=== PATIENT | male | born 1990 | race Caucasian/White ===

== ENCOUNTER 2016-05-01 09:11 | Emergency (ER) | payer BC ==
[~2016-05-01] VITALS: Ht 175.3 cm; Wt 92.0 kg
[~2016-05-01 09:11] MED LIST: HYDR50CA2 PO
[2016-05-01 09:13] VITALS: BP 149/92; PULSE 72; TEMP 37; O2SAT 95; Ht 175.3 cm; Wt 92.0 kg
[2016-05-01] MEDS ORDERED: XYLOCAINE 1%/SOD BICARB 20 ML VIAL INFIL ONE (09:30)
[2016-05-01] MEDS ORDERED: SULF800T23 PO (10:32)
[2016-05-01] MEDS ORDERED: HYDR-5688 PO (10:32)
[2016-05-01] MEDS ORDERED: CEPH500C2 PO (10:32)
--- NOTE | 2016-05-01 19:31 | EMERGENCY ROOM VISIT NOTE ---
ED Visit Note First contact with patient: 09:20 CHIEF COMPLAINT: Tailbone pain and swelling. HISTORY OF PRESENT ILLNESS: Mr. Narayanan is an 25-year-old white male who ambulates into the ED accompanied by mother sawyer costelloaining of coccyx pain and swelling. Patient reports he noticed a hard tender area in superior aspect of the left gluteal fold to 2 days ago. Since that time he has noted the area slowly getting larger, more painful, tender with increasing redness. He does not know of any skin injury preceding the redness and has not observed any drainage from the red area. Currently he describes his discomfort in this area as a pressure sensation. He rates his discomfort 6/10. The pain worsens with sitting on this area as well as palpation. He has minimal relief when he is not sitting on the area. His pain is nonradiating. He has not taken any medications for pain prior to arrival at the hospital. He denies any associated symptoms including fevers, chills, sweats, other skin eruptions, skin color changes, abdominal pain, nausea , vomiting, diarrhea, constipation, rectal bleeding, black/tarry stools, urinary symptoms, hematuria, lower extremity weakness/numbness/tingling, back pain. REVIEW OF SYSTEMS: As noted above in History of Present Illness; a body systems were reviewed with the patient and found to be negative unless noted above otherwise. PAST MEDICAL HISTORY: Asthma, unspecified knee and shoulder surgeries. ALLERGIES TO MEDICATION: Patient denies. CURRENT MEDICATION: Patient denies. SOCIAL HISTORY: Patient is currently University student; he feels safe in his home environment; he denies tobacco use and admits to social alcohol use. PHYSICAL EXAM: Vital Signs: Date Time Temp Pulse Resp B/P Pulse Ox O2 Delivery O2 Flow Rate FiO2 05/01/16 09:13 37.0 72 18 149/92 95 Room Air General: 25 year-old white male in mild acute distress, nontoxic appearing, afebrile and hemodynamically stable. Neurological: Awake, alert and oriented to person, place and time. Answering questions appropriately and following commands. Skin: Warm, dry and pink. Left Gluteal Fold: Over the superior aspect of the fold there is an indurated area in the glenoid by 3 cm area that measures 3 x 5 cm. The area is fluctuant without pointing, but no drainage. There is a zone of inflammation around it but no lymphangitis. Thorax: Lungs sounds are clear to auscultation and equal bilaterally with symmetrical chest wall movement. No wheezing, rales or rhonchi. No increased respiratory effort. Abdomen: Flat, soft and nontender. Positive bowel sounds in all quadrants. No guarding or rigidity. ED COURSE: Patient is assessed as noted above. Incision and Drainage: Location: Left proximal gluteal fold Verbal consent was obtained after the risks and benefits were explained. The skin was prepped with betadine and a sterile field set. The area surrounding the abscess was anesthetized with 6.8 ml of 1% buffered lidocaine. The abscess cavity was incised with a scalpel. Approximately 6 mL of purulent material was drained from the abscess and more was expressed. Aerobic cultures were obtained and are currently pending. The abscess cavity was sharply dissected with iris scissors to break up loculations and a small amount of additional purulent drainage was expressed. Copious irrigation was performed using sterile saline. The abscess cavity was cleaned out with a cotton tip applicator dipped in Betadine. Hemostasis was achieved. Iodoform gauze packing was inserted into the abscess. A sterile dressing was applied. No complications and the patient tolerated the procedure well. Patient was educated about his condition and instructed on his treatment plan; they verbalized understanding and agreement with this plan. CLINICAL IMPRESSION: Pilonidal abscess. DISPOSITION: Patient discharged to home in stable condition accompanied by his mother; prior to departure he was reassessed and subjectively reported he was feeling better and rated his discomfort 2/10. PLAN: Patient was placed on a sliding pain scale of ibuprofen, acetaminophen and Supply ; appropriate narcotic precautions were discussed with the patient. Patient was placed on a ten-day course of Bactrim and Keflex and educated on their use. Patient was encouraged to follow-up with his PCP or return to the ED in 36-48 hours for recheck and possible packing removal Patient was educated on worsening signs of infection and encouraged return to the ED sooner for any signs of worsening infection or uncontrolled pain.
--- NOTE | 2016-05-04 16:13 | Pharmacy Progress Note ---
ED Pharmacist Culture FollowUp Date of Service: May 04, 2016. Patient was sent home with a prescription for Bactrim, which is likely to cover the coag negative Staph growing from the patient's abscess culture. Patient was sent home with a prescription for Keflex, which may cover the Peptostreptococcus growing from the patient's abscess culture. Sarahi Darnell PA-C saw patient yesterday and noted marked improvement in symptoms with minimal erythema. Spoke with Floyd Alonzo PA-C, who agrees that no further intervention is required at this time.
== END 2016-05-01 10:45 | disposition home or self-care (01) ==
LOC: C.EDB 09:12
DX: L05.01 Pilonidal cyst with abscess (principal); J45.909 Unspecified asthma, uncomplicated

== ENCOUNTER 2016-05-03 09:38 | Emergency (ER) | payer BC ==
[~2016-05-03] VITALS: Ht 175.3 cm; Wt 91.9 kg
[~2016-05-03 09:38] MED LIST changes: +CEPH500C2 PO; +HYDR-5688 PO; -HYDR50CA2 PO; +SULF800T23 PO
[2016-05-03 09:46] VITALS: BP 127/79; PULSE 61; TEMP 37; O2SAT 97; Ht 175.3 cm; Wt 91.9 kg
--- NOTE | 2016-05-03 10:05 | EMERGENCY ROOM VISIT NOTE ---
ED Visit Note First contact with patient: 09:57 CHIEF COMPLAINT: Packing removal HISTORY OF PRESENT ILLNESS: This 25-year-old male patient presents to the emergency department to have packing removed from an incised and drained pilonidal abscess REVIEW OF SYSTEMS: A 6 system review of systems was completed with positives and pertinent negatives listed in the HPI. ALLERGIES: No known drug allergies MEDICATIONS: Unchanged from previous PMH: Unchanged from previous SOCIAL HISTORY: The patient does not smoke. He lives locally PHYSICAL EXAM: VITALS: Vitals are noted on the nurse's note and reviewed by myself. Vital signs stable. GENERAL: This is a 25-year-old male, in no acute distress, nondiaphoretic, well- developed well-nourished. SKIN: There is an excised, drained and packed wound in the gluteal cleft. There is only minimal erythema. EMERGENCY DEPARTMENT COURSE: The patient was seen and examined. Overall, the patient's symptoms have markedly improved. The patient is currently on Bactrim and Keflex. The patient's culture grew out mixed bacteria. The packing was easily removed. The patient should continue the antibiotics until gone. he should return with worsening symptoms. Current/Historical Medications Scheduled Cephalexin Monohydrate (Keflex), 500 MG PO QID Sulfa/Trimethoprim (Bactrim Ds 800MG/160MG), 1 TAB PO BID Scheduled PRN Hydrocodone/Acetaminophen 5MG/325MG ([place] 5MG/325MG), 1-2 TABLET PO Q6H PRN for Pain Allergies Coded Allergies: No Known Allergies (Unverified , 05/03/16) Vital Signs Date Time Temp Pulse Resp B/P Pulse Ox O2 Delivery O2 Flow Rate FiO2 05/03/16 09:46 37.0 61 16 127/79 97 Room Air Departure Information Impression Primary Impression: Abscess packing removal Dispostion Home / Self-Care Condition GOOD Referrals No Doctor, Assigned (PCP) Patient Instructions [facility] Additional Instructions Continue the antibiotics as prescribed, until finished Follow-up with Gen. surgery for further evaluation, management and excision Return with any worsening symptoms
== END 2016-05-03 10:15 | disposition home or self-care (01) ==
LOC: C.EDB 09:40 → C.EDC 10:15
DX: L05.01 Pilonidal cyst with abscess (principal)

== ENCOUNTER 2016-08-28 17:53 | Emergency (ER) | payer BC ==
[~2016-08-28] VITALS: Ht 172.7 cm; Wt 92.3 kg
[~2016-08-28 17:53] MED LIST changes: -CEPH500C2 PO; -SULF800T23 PO
[2016-08-28 18:02] VITALS: BP 145/61; PULSE 80; TEMP 37.1; O2SAT 100; Ht 172.7 cm; Wt 92.3 kg
[2016-08-28] MEDS ORDERED: LIDO/EPINEPHRINE/SOD BICARB 20 ML VIAL INFIL ONE (18:15)
[2016-08-28] MEDS ORDERED: SULF800T23 PO (18:43)
[2016-08-28] MEDS ORDERED: CEPH500C2 PO (18:43)
[2016-08-28] MEDS ORDERED: HYDR-5688 PO (18:43)
[2016-08-28] MEDS ORDERED: NORCO 5/325MG HOME PACK PO ONE (19:15)
[2016-08-28] MEDS ORDERED: CEPHALEXIN 500MG HOME PACK 1 EA BTL PO ONE (19:15)
[2016-08-28] MEDS ORDERED: SULFAMETHOXAZOLE/TRIMETHOPRIM DS 800/160MG TAB PO ONE (19:15)
--- NOTE | 2016-08-29 01:15 | EMERGENCY ROOM VISIT NOTE ---
ED Visit Note First contact with patient: 18:05 CHIEF COMPLAINT: Infection. HISTORY OF PRESENT ILLNESS: Mr. Patel an 25-year-old white male who ambulates into the ED accompanied by his mother complaining of a pilonidal abscess. Historically patient reports he's had a previous pilonidal abscess in April of this year. Patient noticed a hard tender area in proximal gluteal fold 3 days ago. Instead time he reports he has been having increasing pain and swelling in the area. He does not know of any skin injury preceding the redness and has not observed any drainage from the area. Currently he describes his pain and pressure at rest that becomes sharp with palpation or sitting on his buttocks. He rates his discomfort 5/10. The pain is nonradiating. He has been using [id number] medication with mild relief of his discomfort. He denies any associated fevers, chills, sweats, other skin eruptions, skin color changes, chest pain, shortness of breath, difficulty breathing, abdominal pain, nausea, vomiting, rectal bleeding, black/ tarry stools, recent trauma. REVIEW OF SYSTEMS: As noted above in History of Present Illness; 8 body systems were reviewed with the patient and found to be negative unless noted above otherwise. PAST MEDICAL HISTORY: As previously noted, asthma, unspecified right knee, left knee and right shoulder surgeries. CURRENT MEDICATION: Patient denies. ALLERGIES TO MEDICATION: Patient denies. SOCIAL HISTORY: Patient is currently employed; he lives with his parents and feels safe in his home environment; he denies tobacco use and admits to alcohol use. PHYSICAL EXAM: Vital Signs: Date Time Temp Pulse Resp B/P (MAP) Pulse Ox O2 Delivery O2 Flow Rate FiO2 08/28/16 18:02 37.1 80 20 145/61 100 Room Air General: 25 year-old male in mild to moderate distress due to pain, nontoxic appearing, afebrile and hemodynamically stable. Neurological: Awake, alert and oriented to person, place and time. Answering questions appropriately and following commands. Skin: Warm, dry and pink. Buttocks: Over the proximal portion of the gluteal fold on the right patient has a indurated area which measures about 3 cm in diameter. This indurated area is fluctuant with pointing but no drainage. There is a zone of inflammation around it but no lymphangitis. Thorax: Lungs sounds are clear to auscultation and equal bilaterally with symmetrical chest wall movement. No wheezing, rales or rhonchi. No increased respiratory effort. Abdomen: Flat, soft and nontender. Positive bowel sounds in all quadrants. No guarding or rigidity. ED COURSE: Patient is assessed as noted above. Incision and Drainage: Verbal consent was obtained after the risks and benefits were explained. The skin was prepped with betadine and a sterile field set. The area surrounding the abscess was anesthetized with 3.2 ml of 1% buffered lidocaine. The abscess cavity was incised with a scalpel. Approximately 4.5 mL of purulent material was drained from the abscess and more was expressed. Aerobic cultures were obtained and are currently pending. The abscess cavity was sharply dissected with iris scissors to break up loculations and a small amount of additional purulent drainage was expressed. Copious irrigation was performed using sterile saline. The abscess cavity was cleaned out with a cotton tip applicator dipped in Betadine. Hemostasis was achieved. Iodoform gauze packing was inserted into the abscess. A sterile dressing was applied. No complications and the patient tolerated the procedure well. Patient was educated about his condition and instructed on his treatment plan; he verbalized understanding and agreement with this plan. CLINICAL IMPRESSION: Right-sided pilonidal abscess. DISPOSITION: Patient discharged to home in stable condition accompanied by his mother; prior to departure he was reassessed and subjectively reported he was feeling the same.. PLAN: Patient was prescribed Keflex and Bactrim and educated on achieves. Additionally patient received a prescription for [place] was placed on a sliding pain medication scale; appropriate narcotic precautions were discussed with the patient. Additionally his name was checked in the state database and no red flags were noted. Patient is to follow-up with his family physician return to ED for recheck and possible packing removal and 36-48 hours. Patient was encouraged return to the ED for worsening signs of infection including increasing pain, skin redness and swelling, fevers for continued care and treatment.
== END 2016-08-28 19:00 | disposition home or self-care (01) ==
LOC: C.EDB 17:55 → C.EDD 19:00
DX: L05.01 Pilonidal cyst with abscess (principal); J45.909 Unspecified asthma, uncomplicated

== ENCOUNTER 2016-08-30 13:50 | Emergency (ER) | payer BC ==
[~2016-08-30] VITALS: Ht 175.3 cm; Wt 92.2 kg
[~2016-08-30 13:50] MED LIST changes: +CEPH500C2 PO; +SULF800T23 PO
[2016-08-30 13:52] VITALS: TEMP 36.9; Ht 175.3 cm; Wt 92.2 kg
[2016-08-30 14:26] VITALS: BP 119/74; PULSE 76; O2SAT 98
--- NOTE | 2016-08-30 16:15 | EMERGENCY ROOM VISIT NOTE ---
History First contact with patient: 13:56 Chief Complaint: PACKING REMOVAL Stated Complaint: REMOVAL OF PACKING FROM CYST History of Present Illness The patient is a 25 year old male who presents to the Emergency Room for packing removal from a pilonidal cyst that was drained in our department 2 days ago. The patient reports profound improvement of his pain and swelling. He has been taking his antibiotics as prescribed. He denies any significant pain on exam. Review of Systems 6 system review was performed and was negative except for pertinent positives and negatives as indicated in history of present illness Past Medical/Surgical History Medical Problems: (1) Asthma Family History Unremarkable Social History Smoking Status: Never Smoker Alcohol Use: occasionally Drug Use: none Occupation Status: [employer] student Current/Historical Medications Scheduled Cephalexin Monohydrate (Keflex), 500 MG PO QID Sulfa/Trimethoprim (Bactrim Ds 800MG/160MG), 1 TAB PO BID Allergies Coded Allergies: No Known Allergies (Unverified , 05/03/16) Physical Exam Vital Signs Date Time Temp Pulse Resp B/P (MAP) Pulse Ox O2 Delivery O2 Flow Rate FiO2 08/30/16 14:26 76 20 119/74 98 08/30/16 13:52 36.9 80 20 127/76 96 Room Air Pain Rating (0-10): 0 Physical Exam CONSTITUTIONAL: Healthy and well nourished. Alert and oriented X 3 with positive affect. Patient does not appear in any acute distress. HEENT: Normocephalic, atraumatic. Pupils equal, round and reactive. NECK: Full active range of motion without discomfort. GASTROINTESTINAL: Bowel sounds present in all quadrants. Soft and nontender to palpation. MUSCULOSKELETAL: Full range of motion of all joints without discomfort. No worsening pain with logroll or hip flexion. INTEGUMENTARY: Examination shows packing within a pilonidal cyst. The packing was removed with no significant purulent drainage. There is still notable induration of the region. NEUROLOGIC: No focal neurologic deficits noted. Medical Decision & Procedures ED Course Patient history and physical exam were performed. Nurse's notes were reviewed. Vital signs were reviewed and normal. The packing was removed without occasions. The patient was instructed to keep the area clean and covered with an antibiotic ointment and dressing until it heals. He was instructed to finish all antibiotics as previous a prescribed. Return to the emergency department for any worsening swelling, pain, fever or drainage. The patient was happy with plan of care, and voiced understanding of all discharge instructions. Medical Decision Impression Primary Impression: Pilonidal abscess Departure Information Dispostion Home / Self-Care Condition GOOD Forms HOME CARE DOCUMENTATION FORM, IMPORTANT VISIT INFORMATION Patient Instructions My [facility] Additional Instructions Complete all antibiotics as previous a prescribed. Keep wound clean and covered with an antibiotic ointment and dressing until it heals. Return to the emergency department for any re-developing infection.
== END 2016-08-30 14:27 | disposition home or self-care (01) ==
LOC: C.EDB 13:51 → C.EDD 14:27
DX: L05.91 Pilonidal cyst without abscess (principal); J45.909 Unspecified asthma, uncomplicated

== ENCOUNTER 2016-12-24 00:58 | Emergency (ER) | payer BC ==
[~2016-12-24] VITALS: Ht 175.3 cm; Wt 92.5 kg
[2016-12-24 01:03] VITALS: Ht 175.3 cm; Wt 92.5 kg
[2016-12-24] MEDS ORDERED: ONDANSETRON INJ 2 MG/ML 2 ML VIAL IV STA (02:44)
[2016-12-24] MEDS ORDERED: SODIUM CHLORIDE 0.9% 1000ML 1,000 ML IV STA ×2 (02:44→03:56)
[2016-12-24] MEDS ORDERED: FAMOTIDINE 20 MG TAB PO ONE (02:45)
[2016-12-24 03:21] LABS: BASO % 0.1 %; BASO ABS # 0.01 K/uL (0-0.2); COMPLETE YES; EOS % 0.4 %; HEMATOCRIT 47.3 % (42-52); IG% 0.3 %; LYMPH % 25.7 %; LYMPH ABS # 2.66 K/uL (1.2-3.4); MEAN CELL VOLUME 90.1 fL (80-100); MEAN CORPUSCULAR HEMOGLOBIN 31.6 pg (25-34); MEAN CORPUSCULAR HGB CONC 35.1 g/dl (32-36); MONO % 8.9 %; NEUT % 64.6 %; PLATELET COUNT 236 K/uL (130-400); RED BLOOD COUNT 5.25 M/uL (4.7-6.1); WHITE BLOOD COUNT 10.34 K/uL (4.8-10.8)
[2016-12-24 03:29] LABS: INR 1.1 (0.9-1.1); PROTHROMBIN TIME (PATIENT) 11.5 SECONDS (9.0-12.0)
[2016-12-24 03:41] LABS: BUN/CREATININE RATIO 11.3 (10-20); CALCIUM 9.3 mg/dl (8.5-10.1); CREATININE 1.02 mg/dl (0.60-1.40); POTASSIUM 3.6 mmol/L (3.5-5.1)
[2016-12-24 03:44] LABS: ALB/GLOB RATIO 1.3 (0.9-2)
[2016-12-24] MEDS ORDERED: ALUMINUM/MAGNESIUM SUSP 30 ML UDC PO STA (03:59)
--- NOTE | 2016-12-24 05:56 | EMERGENCY ROOM VISIT NOTE ---
History Report prepared by Reji: Gail Gunn Under the Supervision of: Dr. Karolina Tellez D.O. First contact with patient: 02:27 Chief Complaint: VOMITING Stated Complaint: THROWING UP BLOOD Nursing Triage Summary: pt states for past few months, not have a solid stool with extreme pain in morning, random pains and cramping. after being at the game today and drinking 3 mixed drinks and 5-6 beers he then vomited up blood. History of Present Illness The patient is a 26 year old male who presents to the Emergency Room with complaints of an episode of hematemesis [employer]. The patient was at the football game today when he began to have abdominal pain and feel nauseous. He ran out and vomited. When he wiped his mouth, he noticed blood and decided to come to the ED. He had several beers and some liquor throughout the day today. The patient states that he has had abdominal pain in the morning twice a week for the past couple of months. The pain is in the middle of his abdomen. He describes it as sharp. His stools have been loose. In the past month, he had 2- 3 black stools. His last black stool was 1.5 weeks ago. He has not followed with a doctor for these symptoms. He is currently still nauseous. He is belching and getting a bitter sour taste in his mouth. He had some chills today. He denies any fever, dizziness, lightheadedness, chest pain, or SOB. He has a family history of IBS. He reports that he eats healthily. He also consumes alcohol, coffee, citrus drinks, and tomato based foods regularly. 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 Review of Systems See HPI for pertinent positives & negatives. A total of 10 systems reviewed and were otherwise negative. Past Medical & Surgical Medical Problems: (1) Asthma Family History Irritable bowel syndrome Social History Smoking Status: Never Smoker Alcohol Use: occasionally Drug Use: none Occupation Status: [employer] student Current/Historical Medications No Active Prescriptions or Reported Meds Allergies Coded Allergies: No Known Allergies (Unverified , 12/24/16) Physical Exam Vital Signs Date Time Temp Pulse Resp B/P (MAP) Pulse Ox O2 Delivery O2 Flow Rate FiO2 12/24/16 06:01 36.5 89 18 110/70 98 12/24/16 04:51 36.7 90 18 108/63 98 Room Air 12/24/16 02:55 74 157/84 98 Room Air 12/24/16 01:03 36.9 114 18 170/110 96 Room Air Physical Exam GENERAL: alert, well appearing, well nourished, no distress, non-toxic EYE EXAM: normal conjunctiva, PERRL and EOM's grossly intact OROPHARYNX: no exudate, no erythema, lips, buccal mucosa, and tongue normal and mucous membranes are dry NECK: supple, no nuchal rigidity, no adenopathy, non-tender LUNGS: Clear to auscultation. Normal chest wall mechanics HEART: no murmurs, S1 normal and S2 normal ABDOMEN: abdomen soft, mild epigastric tenderness, normo-active bowel sounds, no masses, no rebound or guarding. BACK: Back is symmetrical on inspection and there is no deformity, no midline tenderness, no CVA tenderness. SKIN: no rashes and no bruising UPPER EXTREMITIES: upper extremities are grossly normal. LOWER EXTREMITIES: No pitting edema. NEURO EXAM: Normal sensorium, cranial nerves II-XII grossly intact, normal speech, no gross weakness of arms, no gross weakness of legs. Medical Decision & Procedures ER Provider Diagnostic Interpretation: Radiology results have been interpreted by me. Chest/Abdomen X-ray: Chest: No cardiomegaly. No effusion. No wide mediastinum. No focal infiltrate. Abdomen: Scattered air and stool. No SBO. No free air. Laboratory Results 12/24/16 03:13 Red Blood Count 5.25, Mean Corpuscular Volume 90.1, Mean Corpuscular Hemoglobin 31.6, Mean Corpuscular Hemoglobin Concent 35.1, Mean Platelet Volume 10.0, Neutrophils (%) (Auto) 64.6, Lymphocytes (%) (Auto) 25.7, Monocytes (%) (Auto) 8.9, Eosinophils (%) (Auto) 0.4, Basophils (%) (Auto) 0.1, Neutrophils # (Auto) 6.68, Lymphocytes # (Auto) 2.66, Monocytes # (Auto) 0.92, Eosinophils # (Auto) 0.04, Basophils # (Auto) 0.01 12/24/16 03:13 Test 12/24/16 03:13 White Blood Count 10.34 K/uL (4.8-10.8) Red Blood Count 5.25 M/uL (4.7-6.1) Hemoglobin 16.6 g/dL (14.0-18.0) Hematocrit 47.3 % (42-52) Mean Corpuscular Volume 90.1 fL (80-100) Mean Corpuscular Hemoglobin 31.6 pg (25-34) Mean Corpuscular Hemoglobin Concent 35.1 g/dl (32-36) Platelet Count 236 K/uL (130-400) Mean Platelet Volume 10.0 fL (7.4-10.4) Neutrophils (%) (Auto) 64.6 % Lymphocytes (%) (Auto) 25.7 % Monocytes (%) (Auto) 8.9 % Eosinophils (%) (Auto) 0.4 % Basophils (%) (Auto) 0.1 % Neutrophils # (Auto) 6.68 K/uL (1.4-6.5) Lymphocytes # (Auto) 2.66 K/uL (1.2-3.4) Monocytes # (Auto) 0.92 K/uL (0.11-0.59) Eosinophils # (Auto) 0.04 K/uL (0-0.5) Basophils # (Auto) 0.01 K/uL (0-0.2) RDW Standard Deviation 41.2 fL (36.4-46.3) RDW Coefficient of Variation 12.6 % (11.5-14.5) Immature Granulocyte % (Auto) 0.3 % Immature Granulocyte # (Auto) 0.03 K/uL (0.00-0.02) Prothrombin Time 11.5 SECONDS (9.0-12.0) Prothromb Time International Ratio 1.1 (0.9-1.1) Anion Gap 8.0 mmol/L (3-11) Est Creatinine Clear Calc Drug Dose 125.5 ml/min Estimated GFR () 118.7 Estimated GFR (Non- 102.4 BUN/Creatinine Ratio 11.3 (10-20) Lactic Acid Level 2.5 mmol/L (0.4-2.0) Calcium Level 9.3 mg/dl (8.5-10.1) Total Bilirubin 0.7 mg/dl (0.2-1) Aspartate Amino Transf (AST/SGOT) 20 U/L (15-37) Alanine Aminotransferase (ALT/SGPT) 30 U/L (12-78) Alkaline Phosphatase 68 U/L (45-117) Total Protein 8.6 gm/dl (6.4-8.2) Albumin 4.8 gm/dl (3.4-5.0) Globulin 3.8 gm/dl (2.5-4.0) Albumin/Globulin Ratio 1.3 (0.9-2) Lipase 85 U/L (73-393) Laboratory results per my review. Medications Administered Medications (Trade) Dose Ordered Sig/Malou Route Start Time Stop Time Status Last Admin Dose Admin Sodium Chloride 1,000 ml @ 999 mls/hr Q1H1M STAT IV 12/24/16 02:44 12/24/16 03:44 DC 12/24/16 03:17 999 MLS/HR Ondansetron HCl (Zofran Inj) 4 mg NOW STAT IV 12/24/16 02:44 12/24/16 02:47 DC 12/24/16 03:16 4 MG Famotidine (Pepcid Tab) 20 mg NOW ONCE PO 12/24/16 02:45 12/24/16 02:47 DC 12/24/16 03:16 20 MG Sodium Chloride 1,000 ml @ 999 mls/hr Q1H1M STAT IV 12/24/16 03:56 12/24/16 04:56 DC 12/24/16 04:12 999 MLS/HR Al Hydroxide/Mg Hydroxide (Maalox Susp) 15 ml NOW STAT PO 12/24/16 03:59 12/24/16 04:00 DC 12/24/16 04:12 15 ML ECG Indication: abdominal pain Rate (beats per minute): 77 Rhythm: sinus rhythm Findings: no acute ischemic change, no ectopy, other (normal axis, normal intervals) ED Course 0234: The patient was evaluated in room B9. A complete history and physical exam was performed. 0244: Zofran Inj 4 mg IV, NSS 1000 ml @ 999 mls/hr IV. 0245: Famotidine 20 mg PO. 0356: NSS 1000 ml @ 999 mls/hr IV. 0359: Maalox Susp 15 ml PO. 0514: I reevaluated the patient. He is feeling better and tolerating PO. I discussed the findings and the treatment plan with the patient. He verbalizes agreement and understanding. He was discharged home. Medical Decision Differential diagnoses includes but is not limited to gastritis, peptic ulcer disease, GERD, gallbladder disease, pancreatitis, small bowel obstruction, acute coronary syndrome, pericarditis, ischemic bowel, irritable bowel disease, irritable bowel syndrome, appendicitis, diverticulitis, malignancy, hernia, urinary tract infection, torsion, perforation, trauma, infectious. Discussed patient's symptoms at length at bedside. Labs and imaging here reassuring. Patient with no recurrent vomiting, and after medications was reportedly feeling better and able to tolerate by mouth. Discussed with patient the amount of acidity in his diet and how to reduce this. Likely component of gastritis/GERD. Discussed initiation of an [id number] acid reducing medications. Discussed close follow-up with his family doctor and if symptoms recur, likely need for additional GI consultation and possible endoscopy. Discussed with he and mom symptoms to watch and return for, he verbalized understanding was agreeable with plan. Doubt active GI bleed. Likely small amount of blood noted earlier from forceful vomiting. Doubt additional occult infectious etiology. Patient's vital signs stable. He was well-appearing at time of discharge. Medication Reconcilliation Current Medication List: was personally reviewed by me Blood Pressure Screening Patient's blood pressure: Normal blood pressure Blood pressure disposition: Did not require urgent referral Impression Primary Impression: Abdominal pain Additional Impression: Nausea & vomiting Scribe Attestation The scribe's documentation has been prepared under my direction and personally reviewed by me in its entirety. I confirm that the note above accurately reflects all work, treatment, procedures, and medical decision making performed by me. Departure Information Dispostion Home / Self-Care Prescriptions No Active Prescriptions or Reported Meds Referrals No Doctor, Assigned (PCP) Patient Instructions [facility] Additional Instructions Please follow up with your family doctor. Please try to reduce the amount of acidic food and drink in your diet. This includes reducing her intake of alcohol, coffee, tomato-based products, and citrus fruits. Please begin taking an [id number] acid reducing medications such as Prilosec or Pepcid. If you have any recurrent episodes of pain, develop nausea or vomiting, noticed blood in your vomit, develop black or bloody stools, develop fevers, dizziness, or you have any other new concerns, please return the emergency room. Problem Qualifiers Primary Impression: Abdominal pain Abdominal location: epigastric Qualified Codes: R10.13 - Epigastric pain Additional Impression: Nausea & vomiting Vomiting type: unspecified Vomiting Intractability: unspecified Qualified Codes: R11.2 - Nausea with vomiting, unspecified
[2016-12-24 06:01] VITALS: BP 110/70; PULSE 89; TEMP 36.5; O2SAT 98
--- NOTE | 2016-12-24 08:44 | DIAGNOSTIC IMAGING REPORT ---
ABDOMEN 2VIEW W/PA CHEST RTN CLINICAL HISTORY: epigastric pain HEMATEMESIS COMPARISON STUDY: No previous studies for comparison. FINDINGS: The erect chest reveals no evidence of free air. There is no evidence of focal pulmonary consolidation.] Erect and supine views of the abdomen reveal no abnormally dilated loops of large or small bowel. There are no transition zone to indicate bowel obstruction. IMPRESSION: No evidence of bowel obstruction. No evidence of free air. Electronically signed by: Gulshan Jauregui M.D. 12/24/2016 8:43 AM Dictated Date/Time: 12/24/2016 8:43 AM
== END 2016-12-24 06:02 | disposition home or self-care (01) ==
LOC: C.EDB 00:59
DX: R10.9 Unspecified abdominal pain (principal); R11.2 Nausea with vomiting, unspecified; J45.909 Unspecified asthma, uncomplicated; Z83.79 Family history of other diseases of the digestive system